=== PATIENT | female | born 1985 | race Caucasian/White ===

== ENCOUNTER 2017-04-16 21:57 | Emergency (ER) | payer SELFPAY ==
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
[~2017-04-16 21:57] MED LIST: ALBUTEROL17 GM INH; ALPRAZOLAM PO; ATARAX PO; ATIVAN PO; BACTRIM DS TABL1 TA1 PO; BENTYL10 MG PO; BENTYL20 MG PO; BIRTH CONTROL PILL; CIPRO PO; CIPRO250 MG PO; CLEOCIN HCL300 M1 PO; DICLOFENAC PO; DICYCLOMINE HCL20 MG PO; FLEXERIL PO; FLEXERIL10 MG PO; KLONOPIN1 MG PO; LIDOCAINE HC20 MG/M1 PO; LORTAB 7.51 TAB 7.5/ PO; MACROBID100 MG PO; MUCINEX DM1 TAB.SR . PO; NO MEDICATIONS; NORCO 5/325 TAB1 TAB PO; OMEPRAZOLE40 MG PO; PHENERGAN DM1 ML PO; PHENERGAN PO; PHENERGAN25 MG PO; PREDNISONE PO; PRILOSEC20 MG PO; PYRIDIUM PO; ROBAXIN500 MG PO; SILVADENE TOP; TESSALON200 MG PO; ULTRAM PO; VICODIN; VICODIN 5/1 TAB 5/50 PO; VICODIN PO; VISTARIL PO; ZITHROMAX PO; ZITHROMAX1 G/PKT PO
[2017-04-16 22:50] LABS: BASOPHIL% 0.5 % (0-2.5); EOSINOPHIL# 0.1 X10e3 (0-0.7); EOSINOPHIL% 0.8 % (0.0-7.0); HEMATOCRIT 33.3 % (35.0-45.0); HEMOGLOBIN 11.4 gm/dL (12.0-16.0); LYMPHOCYTE# 1.1 X10e3 (1.0-3.5); LYMPHOCYTE% 13.4 % (17.0-45.0); MEAN CELL VOLUME 86.7 FL (83-96); MEAN CORPUSCULAR HEMOGLOBIN 29.7 PG (28-34); MEAN CORPUSCULAR HGB CONC 34.3 g/dL (30-36); MEAN PLATELET VOLUME 9.5 FL (6.5-11.5); MONOCYTE# 0.1 X10e3 (0-1.0); MONOCYTE% 1.6 % (3.0-12.0); NEUTROPHIL# 6.7 X10e3 (1.5-7.1); NEUTROPHIL% 83.7 % (40-75); PLATELET COUNT 139 X10e3 (140-420); RED BLOOD COUNT 3.85 X10e (3.90-5.30); RED CELL DISTRIBUTION WIDTH 14.2 % (11.0-15.5)
[2017-04-16 22:52] LABS: DIFF IND NO
[2017-04-16 23:09] LABS: ALBUMIN SERUM 3.5 g/dL (3.5-5.0); BILIRUBIN,TOTAL 0.4 mg/dL (0.2-2.0); BUN/CREATININE RATIO 15.71; CALCIUM SERUM 8.4 mg/dL (8.4-10.2); CREATININE SERUM 0.7 mg/dL (0.6-1.4); POTASSIUM 3.1 mmol/L (3.5-5.1); PROTEIN TOTAL SERUM 6.9 g/dL (6.0-8.3)
== END 2017-04-17 00:31 | disposition home or self-care (01) ==
LOC: SED 21:57
PROVIDERS: Nurse Practitioner Family
DX: S09.90XA Unspecified injury of head, initial encounter (principal); S93.401A Sprain of unspecified ligament of right ankle, initial encounter; S16.1XXA Strain of muscle, fascia and tendon at neck level, initial encounter; F17.200 Nicotine dependence, unspecified, uncomplicated; Z88.5 Allergy status to narcotic agent; Z91.018 Allergy to other foods; D64.9 Anemia, unspecified; Y09 Assault by unspecified means; Y92.524 Gas station as the place of occurrence of the external cause
CPT/HCPCS: 29540; 36415; 70450; 71100; 72125; 73502; 73610; 80053; 83690; 84703; 85025; 90715; 99284